=== PATIENT | female | born 1940 | race Caucasian/White ===

== ENCOUNTER 2023-10-31 01:33 | Day surgery (SDC) | payer MEDICARE, OTHER, SELFPAY ==
[2023-10-23 12:51] VITALS: BMI 24.8
--- NOTE | 2023-10-23 13:44 | PC.NURSE ---
PRE-OP INSTRUCTIONS, PLEASE READ CAREFULLY Report to the Outpatient Waiting Room, entrance under the green pavilion located off [facility], at time _0600_ on date _10/31/23_. Planned Procedure Time: _0730_. PACK A SMALL OVERNIGHT BAG AND LEAVE IN THE CAR Time changes happen often and if your time is changed the preop area will call you the afternoon before. - You and your visitor will be asked to self-screen and do not enter if you have any COVID symptoms. - A mask is optional within the hospital at this time. Patients may have clear liquids (water, carbonated beverages, clear teas, apple juice) until 3 hours prior to surgery (0430 AM) with a maximum of 20 ounces. - No food from midnight until time of surgery Take the following medications with a SIP of water the morning of surgery: _METOPROLOL, & TYLENOL IF NEEDED_ DO NOT STOP ANY OF YOUR OTHER PRESCRIPTION MEDICATIONS PRIOR TO SURGERY ?EXCEPT THE FOLLOWING Medications to discontinue per physician ____N/A Date to take last dose Please no make-up, nail albanian, hairspray, perfume, deodorant, or body powder the day of surgery. No jewelry (including any body piercings) or valuables the day of surgery, leave them at home. Please take a shower or bath the night before, or the morning of, surgery with an antibacterial soap. Wear comfortable, loose fitting clothing. - Jewelry must be removed prior to entering the operating room. Rings and piercings that are not removed may be cut off. - The hospital will not accept responsibility for valuables. - Please leave all valuables, including medications, at home the day of surgery. If you are going home after surgery, a licensed sulky driver must drive you home. - NO public transportation without another adult if you receive anesthesia. - We recommend that an adult stay with you for 24 hours following discharge. - We also recommend that you do not drive, make important decision, drink alcoholic beverages, or take any drugs that were not prescribed by your health care provider for at least 24 hours after your discharge time. Follow any additional instructions given to you from your surgeon. If you or anyone in your household have experienced Covid symptoms in the past week, please notify your surgeon or the nurse liaison at the phone number below for possible testing. Telephone instructions given to _PATIENT_and asked if any additional questions and then verbalized understanding. Patient advised to call surgeon office or pre surgery nurse liaison [phone] if any additional questions.
--- NOTE | 2023-10-30 15:52 | P.PNAN_ITS ---
Anes - Initial Pre Proc Eval Procedure: Operation Date: 10/31/23 07:30 Proposed Procedures p Left L4-5 Elver Laminectomy - Lucas Ortega MD Date/Time: 10/30/23 15:52 Surgeon: Lucas Ortega MD Pre Op Diagnosis: lumbar stenosis Patient Data Age: 83 Gender: F Height: 1.6 m Weight: 63.63 kg Allergies Allergy/AdvReac Type Severity Reaction Status Date / Time codeine Allergy Confusion Verified 10/31/23 06:12 Home Medications Medication Instructions Recorded Confirmed Type furosemide 20 mg tablet 20 mg PO EVERY OTHER DAY 10/31/22 10/31/23 History losartan 100 mg tablet 100 mg PO DAILY 10/31/22 10/31/23 History metformin 500 mg tablet,extended 500 mg PO BID 10/31/22 10/31/23 History release 24 hr metoprolol succinate 25 mg 25 mg PO DAILY 10/31/22 10/31/23 History tablet,extended release 24 hr acetaminophen 500 mg tablet 1,000 mg QID PAIN 10/23/23 10/31/23 History pyridoxine (vitamin B6) 50 mg 50 mg PO DAILY 10/23/23 10/31/23 History tablet Patient hx anesthesia problems: none Family hx anesthesia problems: none Results Review: All pre-operative results and documents have been reviewed as part of the pre- operative evaluation. FORMERLY [facility] Past Medical History Medical History (Updated 10/30/23 @ 15:53 by Mike Avalos, ) Aortic aneurysm repaired 1980, stable Arthritis COPD (chronic obstructive pulmonary disease) Fibromyalgia Hypertension Type 2 diabetes mellitus Surgical History Surgical History History of bilateral knee replacement Social History Social History (Updated 06/26/23 @ 11:16 by YVETTE Guzman) Smoking status: Former smoker Tobacco type: cigarettes Second hand tobacco smoke exposure: No Additional smoking assessment comments: PT UNABLE TO RECALL SMOKING HX-STATES QUIT 2017~, BUT MIGHT STILL SMOKE ONE Alcohol intake: current Substance use: never Substance use type: does not use Lack of Transportation: No Lack of Food: Never True Current Housing: I Have Housing Concerned About Future Housing: No Difficulty Paying Gas/Electric Bills: No Difficulty Paying for Meds: No Currently Unemployed: No Education: High School Diploma/GED Difficulty w/ Childcare or Family Care: No Living arrangements: alone Spiritual care concerns: No Anes - Eval Final PreProcedure Day of Procedure 10/30/23 15:52 Patient weight: normal Heart: regular rate and rhythm Lungs: clear to auscultation Airway: Mallampati scale class II Neurological: alert and oriented Last oral intake: >/= 8 hours ASA classification: III Emergent: no Anesthetic plan: proceed Anesthesia type and monitoring: general ETT and standard monitoring Results Review: All pre-operative results and documents have been reviewed as part of the pre- operative evaluation. Informed Consent: The patient's anesthetic plan and its attendant risks and benefits were discussed with the patient/family/POA. Questions were solicited and answers provided to the satisfaction of the patient/family/POA.
[2023-10-31] VITALS (9 sets, daily range): BP systolic 107–173; BP diastolic 58–76; PULSE 73–94; RESP 13–18; TEMP 36.2–36.7; O2SAT 92–100; BMI 24.7
--- NOTE | ~2023-10-31 | XR_ITS ---
XR fluoroscopy no charge Indication: Lumbar laminectomy TECHNIQUE: Fluoroscopy used during Lumbar laminectomy performed by [Lucas Ortega MD] on . Fluoroscopy time is 2 seconds with 1 fluoroscopic images captured. FINDINGS: Correlate with procedure note. Note is made of grade 1 spondylolisthesis at L4-5 with disc narrowing at L3-4, L4-5 and L5-S1. IMPRESSION: Fluoroscopy used during Lumbar laminectomy. Please refer to procedural report for details . Reviewed, dictated and finalized at location L. UCTION CLERK IMPRESSION: Fluoroscopy used during Lumbar laminectomy. Please refer to procedu ral report for details.
[2023-10-31 06:19] LABS: Glucose Point of Care 136 mg/dl (65-105)
[2023-10-31] MEDS: LACTATED RINGERS 1,000 ML 30 ML IV CONT ×2 (06:57→09:47)
--- NOTE | 2023-10-31 07:42 | PM.IMHP ---
H&P: HPI History of Present Illness Date/Time: 10/31/23 07:42 Chief Complaint: Back and leg pain Narrative: Lolita is an 83-year-old female with back and leg pain related to stenosis at L4-5 presents with left-sided hemilaminectomy at that level. She has not changed appreciably since we last saw her. She does not have specific muscle group weakness dermatomal numbness. She is not having bowel or bladder difficulty. Review of Systems Review of Systems: Patient denies shortness of breath, cough, fever, chills, nausea, vomiting, weight loss, weight gain, chest pain, dysuria. She has back and leg pain as above. Review of systems is otherwise -12 systems except as noted elsewhere. FORMERLY [facility] Past Medical History Medical History (Updated 10/30/23 @ 15:53 by Mike Avalos, ) Aortic aneurysm repaired 1980, stable Arthritis COPD (chronic obstructive pulmonary disease) Fibromyalgia Hypertension Type 2 diabetes mellitus Surgical History Surgical History History of bilateral knee replacement Social History Social History (Updated 06/26/23 @ 11:16 by YVETTE Guzman) Smoking status: Former smoker Tobacco type: cigarettes Second hand tobacco smoke exposure: No Additional smoking assessment comments: PT UNABLE TO RECALL SMOKING HX-STATES QUIT 2017~, BUT MIGHT STILL SMOKE ONE Alcohol intake: current Substance use: never Substance use type: does not use Lack of Transportation: No Lack of Food: Never True Current Housing: I Have Housing Concerned About Future Housing: No Difficulty Paying Gas/Electric Bills: No Difficulty Paying for Meds: No Currently Unemployed: No Education: High School Diploma/GED Difficulty w/ Childcare or Family Care: No Living arrangements: alone Spiritual care concerns: No Meds Home Medications and Allergies Home Medications Medication Instructions Recorded Confirmed Type furosemide 20 mg tablet 20 mg PO EVERY OTHER DAY 10/31/22 10/31/23 History losartan 100 mg tablet 100 mg PO DAILY 10/31/22 10/31/23 History metformin 500 mg tablet,extended 500 mg PO BID 10/31/22 10/31/23 History release 24 hr metoprolol succinate 25 mg 25 mg PO DAILY 10/31/22 10/31/23 History tablet,extended release 24 hr acetaminophen 500 mg tablet 1,000 mg QID PAIN 10/23/23 10/31/23 History pyridoxine (vitamin B6) 50 mg 50 mg PO DAILY 10/23/23 10/31/23 History tablet Allergies Allergy/AdvReac Type Severity Reaction Status Date / Time codeine Allergy Confusion Verified 10/31/23 06:12 Vital Signs Vital Signs - 24 hr 10/31/23 06:34 10/31/23 06:38 Temperature 97.2 F L 97.2 F L Pulse Rate 75 75 Respiratory Rate 16 16 Blood Pressure 127/76 127/76 Pulse Oximetry 96 96 Oxygen Delivery Room Air Exam Narrative: Strength is 5/5 in all muscle groups of the bilateral lower extremities. Sensation is intact to light touch throughout the lower extremities. Breathing is nonlabored Regular rate and rhythm Assessment and Plan Assessment and plan (1) Lumbar stenosis with neurogenic claudication: Code(s): M48.062 - Spinal stenosis, lumbar region with neurogenic claudication Status: Acute (2) Lumbar disc herniation: Code(s): M51.26 - Other intervertebral disc displacement, lumbar region Status: Acute (3) Spondylolisthesis at L4-L5 level: Code(s): M43.16 - Spondylolisthesis, lumbar region Status: Acute Plan Lolita is an 83-year-old female presents for left L4-5 hemilaminectomy for central canal stenosis. She also has spondylolisthesis. I described to her again that operation, its risks, potential benefits, the operative postoperative course in detail and answered all her questions personally. She indicates understanding and elects to proceed with that operation.
--- NOTE | 2023-10-31 07:45 | WPDHPUPDATE1 ---
History and Physical Update Update Date/Time: 10/31/23 07:45 History and Physical has been reviewed, including an updated exam of the patient. There are NO changes in the patient's condition. Risks, benefits, and alternatives have been discussed and questions answered. Patient agrees to proceed with procedure.
[2023-10-31] MEDS: ceFAZolin 2 GM/D5W 50 ML 2 GM/50 ML BAG IVPB (07:47)
[2023-10-31] MEDS: LIDO 1%/EPINEPHRINE 1:100,000 50 ML VIAL 10 ML INFILTRATE (08:21)
--- NOTE | 2023-10-31 09:16 | P.OP_ITS ---
Procedure Note - Detailed Date of Procedure 10/31/23 Pre-op Diagnosis lumbar stenosis Post-op Diagnosis Same Procedure Performed Left L4-5 hemilaminectomy for central canal stenosis Surgeon Lucas Ortega MD Anesthesia General Description of Procedure The patient was brought to the operating room in the supine position, was sedated, intubated and placed under general anesthesia in routine fashion. She was then turned into the prone position on a Wolf frame. The of operation on her back was examined, marked for incision, prepped and draped in routine sterile fashion. Incision was marked over the L4 and L5 spinous processes in the midline. This area was injected with 0.5% lidocaine with [id number] e pinephrine. Intravenous antibiotics given prior to incision. Incision was made with a 10 blade scalpel down to the lumbodorsal fascia. A subperiosteal dissection of the muscle soft tissue away from spinous process and lamina was performed with a subperiosteal elevator and Bovie cautery. A verifying x-rays obtained to verify level of operation. Midas-Yasmany drill was used to perform a hemilaminectomy and medial facetectomy on the left side at L4-5. Under microscopy a yellow ligament was lifted removed piecemeal using Kerrison punches. This was done it is a laterally and then contralaterally. This was done with difficulty as there was significant overgrowth of the ligament especially but also the bone. The nerve root traversing was identified on each side. This was followed toward its foramen. Lack of compression was confirmed by passing a nerve hook above and below the nerve on each side. The wound was then copiously irrigated with bacitracin irrigation all bleeding stopped with bipolar and Bovie cautery and Gelfoam thrombin powder. Wound was then closed in layered fashion with 2-0 Vicryl interrupted sutures in the lumbodorsal fascia and Tad's layer. 3-0 Vicryl buried interrupted sutures were placed in the dermis and skin was closed with a running 4-0 Monocryl subcuticular stitch and dressed with Dermabond. The patient was allowed to come out from general anesthesia in the operating room and was taken to the recovery room in stable condition. There were no immediate complications of this operation. All counts were reported correct in the case. Blood loss was 25 cc. The patient was neurologically at her baseline postoperatively. CPT codes: 29458, 03979 Estimated Blood Loss 25 IV Fluids 1,000 Complications None Condition Stable Disposition PACU [facility] Billing Surgery - Charge Forward: Surgery Billing
[2023-10-31 09:26] LABS: Glucose Point of Care 134 mg/dl (65-105)
--- NOTE | 2023-10-31 09:48 | SUR.PHASEI ---
0947: Simple mask removed.
== END 2023-10-31 11:14 | disposition home or self-care (01) ==
PROVIDERS: PCP Internal Medicine; Visit Provider Neurological Surgery
PROC: (CPT 63005; principal; 2023-10-31 07:30)
DX: M43.16 Spondylolisthesis, lumbar region (principal); M48.062 Spinal stenosis, lumbar region with neurogenic claudication; M51.26 Other intervertebral disc displacement, lumbar region; Z79.84 Long term (current) use of oral hypoglycemic drugs; J44.9 Chronic obstructive pulmonary disease, unspecified; I10 Essential (primary) hypertension; E11.9 Type 2 diabetes mellitus without complications; M79.7 Fibromyalgia; Z87.891 Personal history of nicotine dependence
CPT/HCPCS: 63047; 82948; 99199; J0330; J0690; J1100; J2405; J2704; J3010; J7120